=== PATIENT | male | born 1985 | race Two or more races ===

== ENCOUNTER → 2016-03-17 | Outpatient (CLI) | payer OTHER ==
[~2016-03-17] MED LIST: GADOBUTROL 10 ML VIAL IVP ONE; GLUCAGON,HUMAN RECOMBINANT 0.3 MG in SYRINGE 0.3 ML IVP ONE
--- NOTE | 2016-03-17 10:25 | MR ---
MR Enterography (Abdomen and Pelvis) Without and With IV Contrast March 17, 2016 Indication: Crohn disease. Surveillance. Technique: Standard MR enterography protocol utilizing T2 and multiplanar T1 without and with contras t with fat suppression. Patient received 7 mL Gadavist intravenously without complication. Patient re ceived a total dose of 0.6 mg glucagon intravenously to minimize bowel peristalsis/motion artifact. P atient ingested 700 mL of negative oral contrast agent. Comparison: None. Findings: The terminal ileum has mild architectural distortion and surrounding "creeping fat" in the right lower quadrant. Terminal ileum is small in caliber with a short segment of equivocal wall thick ening on images 21 and 22 if the axial T2 FIESTA (series 12). No abnormal enhancement on the dynamic postcontrast imaging to suggest active inflammation. The upstream small bowel is normal. No evidence of bowel obstruction. No free fluid, fluid collection, or sinus tract. The colon is normal without fo rosalee wall thickening or abnormal enhancement. The liver, spleen, pancreas, adrenal glands, and kidneys are normal. Layering bile salts are present within the gallbladder lumen. No cholelithiasis, biliary dilation, or common bile duct stone. The com mon bile duct is normal caliber (3 mm). The pancreatic duct is normal. Abdominal aorta is normal caliber. Bone marrow signal is normal. No evidence of sacroiliitis. Impression: 1. Features of quiescent Crohn disease evidenced by creeping fat and minimal distortion of the termin al ileum. No evidence of active inflammation or bowel obstruction. 2. Normal colon. 3. No free fluid, abscess, fistula, or other complication associated with Crohn disease.
== END ==
LOC: FIMAGING 07:20
PROVIDERS: ATTEND Physician Assistant
DX: K50.90 Crohn's disease, unspecified, without complications (principal)
CPT/HCPCS: A9585; J1610

== ENCOUNTER → 2018-01-11 | Outpatient (CLI) | payer OTHER ==
[~2018-01-11] MED LIST changes: +GLUCAGON HCL 0.3 MG in SYRINGE 0.3 ML IVP ONE; -GLUCAGON,HUMAN RECOMBINANT 0.3 MG in SYRINGE 0.3 ML IVP ONE
== END ==
LOC: FIMAGING 12:10
PROVIDERS: ATTEND Internal Medicine Gastroenterology
DX: K50.90 Crohn's disease, unspecified, without complications (principal)
CPT/HCPCS: A9585; J1610